=== PATIENT | male | born 1980 | race Caucasian/White ===

== ENCOUNTER 2021-10-02 13:31 | Emergency (ER) | payer BC, SELFPAY ==
[2021-10-02 14:18] LABS: #Basophils 0.1 10x3/uL (0.0-0.2); #Eosinphils 0.3 10x3/uL (0.0-0.5); #Monocytes 0.4 10x3/uL (0.0-1.1); #Neutrophils 3.1 10x3/uL (1.5-8.4); %Basophils 1.4 % (0.0-2.0); %Eosinophils 4.7 % (0.0-6.0); %Lymphocytes 29.9 % (18.0-47.0); %Monocytes 7.4 % (0.0-10.0); %Neutrophils 56.2 % (40.0-75.0); Hemoglobin 13.5 g/dL (13.5-17.5); Mean Corpuscular HGB CONC 34.5 g/dL (32.0-36.0); Mean Corpuscular Hemoglobin 29.5 pg (27.0-33.0); Mean Corpuscular Volume 85.6 fl (81.2-95.1); Mean Platelet Volume 9.5 fl (7.4-10.4); Platelet Count 273 10x3/uL (150-450); Red Blood Cell (RBC) Count 4.57 10x6/uL (4.32-5.72); White Blood Cell (WBC) Count 5.6 10x3/uL (3.5-10.5)
[2021-10-02 14:38] LABS: ALT (SGPT) 43 U/L (8-55); AST (SGOT) 38 U/L (5-34); Albumin 4.6 g/dL (3.5-5.0); Alkaline Phosphatase 57 U/L (40-110); Anion Gap 13 mmol/L (10-20); BUN (Urea Nitrogen) 15 mg/dL (8.9-20.6); Bilirubin, Total 0.8 mg/dL (0.2-1.2); Calc. Creatinine Clearance 0 mL/min (70-130); Calcium 9.6 mg/dL (7.8-10.44); Carbon Dioxide 28 mmol/L (22-29); Chloride 104 mmol/L (98-107); Globulin 2.3 g/dL (2.4-3.5); Glucose 111 mg/dL (70-105); Potassium 4.4 mmol/L (3.5-5.1); Protein, Total 6.9 g/dL (6.0-8.3); Sodium 141 mmol/L (136-145)
[2021-10-02 15:33] LABS: Magnesium 1.8 mg/dL (1.6-2.6)
[2021-10-02 15:45] LABS: INR-International Normal Ratio 3.7; PTT 48.8 sec (22.0-33.0); Prothrombin Time 37.6 sec (9.5-12.1)
== END 2021-10-02 16:23 | disposition home or self-care (01) ==
LOC: CSHERS 13:31
DX: I49.1 Atrial premature depolarization (principal); R00.2 Palpitations; R79.0 Abnormal level of blood mineral; I45.10 Unspecified right bundle-branch block; E03.9 Hypothyroidism, unspecified; Z87.442 Personal history of urinary calculi
CPT/HCPCS: 36415; 71045; 80053; 83735; 84439; 84484; 85025; 85610; 85730; 93005